=== PATIENT | female | born 1935 | race Caucasian/White ===

== ENCOUNTER 2016-11-20 16:47 | Inpatient (IN) | payer OTHER ==
--- NOTE | 2016-11-20 17:05 | EDPHY ---
H & P Time Seen by Provider: 11/20/16 16:53 HPI/ROS: HPI: This 81-year-old female who presents with Chief Complaint: Accidental fall Location: Right side of face, left hip Quality: Injury Duration: 30 minutes to 1 hour prior to arrival Signs and Symptoms: No dizziness, no syncope, no chest pain, no shortness of breath, no back pain, no neck pain, no nausea vomiting, no abdominal pain, no radiation, no weakness, no incontinence Timing: Sudden Severity: [id number] Context: Patient reports she was outside walking on the sidewalk; tripped on uneven pavement; falling forward; hitting the right side of her face and then rolling hitting the left side of her hip. She reports bilateral hip replacement. Denies taking any blood thinners. Denies any loss of consciousness. Neighbors found her outside. She was ambulatory at the scene. The neighbors helped her inside her house and EMS was called. Last tetanus unknown. Modifying Factors: Given IV Zofran en route by EMS Comment: ROS: Constitutional: No fever, no chills, no weight loss Eyes: No blurred vision Respiratory: No shortness of breath, no cough Cardiovascular: No chest pain Gastrointestinal: No nausea, no vomiting no diarrhea Genitourinary: No dysuria Extremities: No myalgias Neurologic: No weakness, no numbness Skin: No rashes Hematologic: No bruising, no bleeding MEDICAL/SURGICAL/SOCIAL HISTORY: Lives by self. bilateral hip replacements, type 2 diabetes, GERD and depression Source: Patient - Physical Exam Exam: CONSTITUTIONAL: The T elderly white female, awake and alert, no obvious distress HEENT: Right congregational sparing orbital region small superficial 1/8 cm laceration ; minimal bleeding. Atraumatic and normocephalic, PERRL, EOMI. Nares patent; no epistaxis; mild nasal ecchymosis. Tympanic membranes clear. TMs intact. Right maxillary ecchymosis noted; mild crepitus. Oropharynx clear, no exudate and moist pink mucosa. No dental cracks or loosening. Right side of chin ecchymosis noted. No lip laceration. Airway patent. NECK: Supple; in a cervical collar; denies posterior tenderness. No lymphadenopathy. No meningismus. Cardiovascular: Normal S1/S2, regular rate, regular rhythm, without murmur rub or gallop. PULMONARY/CHEST: Symmetrical and nontender. No crepitus. Clear to auscultation bilaterally Good air movement. No accessory muscle usage. ABDOMEN: Soft, nondistended, nontender, no rebound, no guarding, no peritoneal signs, no masses or organomegaly. No CVAT. No ecchymosis. EXTREMITIES: 2/2 pulses, no deformities, no clubbing, no cyanosis or edema. Left hip; remote incision noted from hip replacement; mild tenderness over the greater trochanter; leg lengths are equal; able to lift both legs off the bed against gravity. NEUROLOGICAL: no focal neuro deficits. GCS 15. drowsy but able to speak and follow simple one-step commands. SKIN: Warm and dry, pallor, no erythema. no rash. Good capillary refill. Constitutional: Initial Vital Signs Temperature (C) 36.3 C 11/20/16 16:53 Heart Rate 73 11/20/16 16:53 Respiratory Rate 18 11/20/16 16:53 Blood Pressure 118/78 11/20/16 16:53 O2 Sat (%) 92 11/20/16 16:53 O2 Delivery Mode Room Air Allergies/Adverse Reactions: Penicillins Allergy (Verified 11/20/16 17:04) Home Medications: Medication Instructions Recorded Metformin 1000 mg 11/20/16 Prednisone 11/20/16 Protonix 11/20/16 VENLAFAXINE HCL 11/20/16 Wellbutrin Xl 11/20/16 Medical Decision Making - Diagnostics Imaging Results: Imaging Impressions Cervical Spine CT 11/20/16 16:59 Impression: 1. No acute abnormality seen about the cervical spine. 2. Marked marked diffuse degenerative disk disease. Findings discussed with Siobhan Collazo PAC at 18:01 hour, 11/20/2016. Face CT 11/20/16 16:59 Impression: 1. Small amount of subarachnoid hemorrhage anterior right sylvian fissure and along the medial aspect left frontal lobe in a parasagittal location 2. No mass effect, or acute peripheral infarct. 3. Mild to moderate microvascular ischemic disease. 4. Mild to moderate age-related atrophy. 5. Fracture of the right nasal bone with mild depression. 6. Nondisplaced fracture posterior lateral right maxillary sinus with air-fluid level. [facility] at 18:01 hour, 11/20/2016. Head CT 11/20/16 16:59 Impression: 1. Small amount of subarachnoid hemorrhage anterior right sylvian fissure and along the medial aspect left frontal lobe in a parasagittal location 2. No mass effect, or acute peripheral infarct. 3. Mild to moderate microvascular ischemic disease. 4. Mild to moderate age-related atrophy. 5. Fracture of the right nasal bone with mild depression. 6. Nondisplaced fracture posterior lateral right maxillary sinus with air-fluid level. Findings discussed with Siobhan Collazo PAC at 18:01 hour, 11/20/2016. Hip X-Ray 11/20/16 16:59 Impression: Nothing acute identified. ED Course/Re-evaluation: trauma protocol CT head scan, CT maxillofacial scan, CT cervical scan, left hip x-ray, wound care ordered Fall mechanical in nature Denies anticoagulant use including aspirin. Small abrasion on the right congregational noted No loss of consciousness; neurovascularly intact. 1725: Right hip x-ray my read shows no hardware loosening; fracture; dislocation. 1805: called by radiologist and head CT scan shows subarachnoid hemorrhage in the right anterior Napoleon and left frontal parasagittal along with a right nasal bone fracture, right maxillary sinus fracture PCN allergy; Keflex given for sinus fracture SBP 110-120s No signs of neurovascular compromise 1815: ED decision to consult for admission, spoke with Neurosurgery, Dr. Erickson , hospitalist Dr. Abernathy and Trauma, Dr. Ahuja. Please note: Left hip x-ray pending upon consultation Differential Diagnosis: Fall in the elderly including but not limited to intracranial injury, long bone and pelvic bone fracture, spinal injury, and intrathoracic injury. Critical Care Time: I spent a total of 42 minutes of critical care time in obtaining history, performing a physical exam, bedside monitoring of interventions, collecting and interpreting tests and discussion with consultants but not including time spent performing procedures. Diagnosis: Subarachnoid hemorrhage - Data Points Medications Given: Discontinued Medications Diphtheria/Tetanus/Acell Pertussis (Boostrix) 0.5 ml IM .ONCE ONE Stop: 11/20/16 17:07 Last Admin: 11/20/16 17:45 Dose: 0.5 ml Departure - Departure Disposition: [facility] Acute Clinical Impression: Subarachnoid hemorrhage Accidental fall Qualifiers: Encounter type: initial encounter Qualified Code(s): W19.XXXA - Unspecified fall, initial encounter Nasal bone fracture Qualifiers: Encounter type: initial encounter Fracture type: closed Qualified Code(s): S02.2XXA - Fracture of nasal bones, initial encounter for closed fracture Fracture of maxillary sinus Qualifiers: Encounter type: initial encounter Fracture type: closed Qualified Code(s): S02.401A - Maxillary fracture, unspecified side, initial encounter for closed fracture Condition: Good
[2016-11-20] MEDS ORDERED: TDAP ADULT 0.5 ML INJ (BOOSTRIX) IM ONE (17:06)
[2016-11-20] MEDS ORDERED: CEPHALEXIN 500 MG CAP PO ONE (18:21)
[2016-11-20 18:38] LABS: % IMMATURE GRANULYOCYTES 0.4 % (0.0-1.1); ABSOLUTE IMMATURE GRANULOCYTES 0.03 10^3/uL (0.00-0.10); ADD DIFF? NO; ADD MORPH? NO; ADD SCAN? NO; ATYPICAL LYMPHOCYTE FLAG 10 (0-99); FRAGMENT RBC FLAG 0 (0-99); HEMATOCRIT 36.4 % (38.0-47.0); HEMOGLOBIN 12.6 g/dL (12.6-16.3); LEFT SHIFT FLG 0 (0-99); LIPEMIA HEMOLYSIS FLAG 90 (0-99); MEAN CELL HEMOGLOBIN 31.4 pg (27.9-34.1); MEAN CELL HEMOGLOBIN CONCENTR. 34.6 g/dL (32.4-36.7); MEAN CELL VOLUME 90.8 fL (81.5-99.8); PLATELET CLUMPS FLAG 10 (0-99); PLATELET COUNT 242 10^3/uL (150-400); RED BLOOD CELL COUNT 4.01 10^6/uL (4.18-5.33); RED CELL DISTRIBUTION WIDTH 13.8 % (11.5-15.2)
[2016-11-20 18:39] LABS: ANION GAP 15 mEq/L (8-16); CALCIUM 9.7 mg/dL (8.5-10.4); CARBON DIOXIDE 20 mEq/l (22-31); CHLORIDE 97 mEq/L (97-110); CREATININE 0.9 mg/dL (0.6-1.0); GLOMERULAR FILTRATION RATE > 60; GLUCOSE 120 mg/dL (70-100); POTASSIUM 4.5 mEq/L (3.5-5.2); SODIUM 132 mEq/L (134-144)
[2016-11-20] MEDS ORDERED: D50W 25 GM/50 ML SYR IVP PRN (19:16)
[2016-11-20] MEDS ORDERED: hydrALAZINE 20 MG/ML VIAL IVP PRN (19:21)
--- NOTE | 2016-11-20 19:25 | PDGENHP ---
History and Physical - Chief Complaint fall - History of Present Illness 81yo female who presented to the ED via EMS after sustaining mechanical fall. Per the patient, she is a resident at an unassisted living facility and she was walking on her cement patio. The details are foggy, but she thinks she tripped and fell on her right side. She does endorse LOC and c/o right sided facial pain. In the emergency department, she is AOx3, and nonfocal on exam. She c/o R sided facial and eye pain 7/10 in intensity which she states is throbbing. She also endorses right hip, shoulder and elbow pain. She is protecting her airway, has good breath sounds and has adequate circulation in all major distributions. he main complaints are pain and the fact that she requires hospital admission History Information - Allergies/Home Medication List Allergies/Adverse Reactions: Penicillins Allergy (Verified 11/20/16 17:04) Home Medications: ALPRAZolam [Xanax 0.5 MG (*)] 1.5 mg PO HS 11/20/16 [Last Taken 11/19/16] Atenolol [Tenormin 50 mg (*)] 50 mg PO DAILY 11/20/16 [Last Taken 11/20/16] Ranitidine HCl [Zantac] 300 mg PO DAILY@18 11/20/16 [Last Taken 11/19/16] Venlafaxine Xr [Effexor Xr 75MG (*)] 225 mg PO DAILY@18 11/20/16 [Last Taken 09/28] buPROPion XL [Wellbutrin Xl] 300 mg PO DAILY 11/20/16 [Last Taken 11/20/16] metFORMIN HCL [Glucophage 500 mg (*)] 500 mg PO DAILY 11/20/16 [Last Taken 11/20] I have personally reviewed and updated: medical history, social history, surgical history Past Medical History: anxiety, depression, diabetes. - Surgical History Additional surgical history: bilateral hip replacements, open dennis - Family History Positive for: non-pertinent - Social History Smoking Status: Never smoked Alcohol Use: None Additional social history: lives at [facility] independently Review of Systems Review of Systems: ROS: 10pt was reviewed & negative except for what was stated in HPI & below Physical Exam Physical Exam: Temp Pulse Resp BP Pulse Ox 36.9 C 85 18 117/86 H 95 09/08/17 18:00 11/20/16 18:00 11/20/16 18:00 11/20/16 18:00 11/20/16 18:00 Constitutional: no apparent distress, uncomfortable, other (dizzy) Eyes: PERRL, anicteric sclera, EOMI Ears, Nose, Mouth, Throat: moist mucous membranes, hearing normal, ears appear normal, no oral mucosal ulcers Cardiovascular: regular rate and rhythym, no murmur, rub, or gallop, No edema Respiratory: no respiratory distress, no rales or rhonchi, clear to auscultation Gastrointestinal: normoactive bowel sounds, soft, non-tender abdomen, no palpable masses Skin: warm, normal color, no rashes or abrasions, no fluctuance, no induration, No mottled Musculoskeletal: full muscle strength, no muscle tenderness, normal joint ROM, no joint effusions Neurologic: AAOx3, CN II-XII Intact, No weakness, No numbness, No asterixes Psychiatric: interacting appropriately, not anxious, not encephalopathic, thought process linear Lymph, Heme, Immunologic: no cervical LAD, no supraclavicular LAD Lab Data & Imaging Review 11/20/16 17:00 11/20/16 17:00 WBC 7.03 10^3/uL (3.80-9.50) 11/20/16 17:00 RBC 4.01 10^6/uL (4.18-5.33) L 11/20/16 17:00 Hgb 12.6 g/dL (12.6-16.3) 11/20/16 17:00 Hct 36.4 % (38.0-47.0) L 11/20/16 17:00 MCV 90.8 fL (81.5-99.8) 11/20/16 17:00 MCH 31.4 pg (27.9-34.1) 11/20/16 17:00 MCHC 34.6 g/dL (32.4-36.7) 11/20/16 17:00 RDW 13.8 % (11.5-15.2) 11/20/16 17:00 Plt Count 242 10^3/uL (150-400) 11/20/16 17:00 MPV 9.0 fL (8.7-11.7) 11/20/16 17:00 Neut % (Auto) 74.0 % (39.3-74.2) 11/20/16 17:00 Lymph % (Auto) 16.1 % (15.0-45.0) 11/20/16 17:00 Kenton % (Auto) 3.4 % (4.5-13.0) L 11/20/16 17:00 Eos % (Auto) 5.4 % (0.6-7.6) 11/20/16 17:00 Baso % (Auto) 0.7 % (0.3-1.7) 11/20/16 17:00 Nucleat RBC Rel Count 0.0 % (0.0-0.2) 11/20/16 17:00 Absolute Neuts (auto) 5.20 10^3/uL (1.70-6.50) 11/20/16 17:00 Absolute Lymphs (auto) 1.13 10^3/uL (1.00-3.00) 11/20/16 17:00 Absolute Monos (auto) 0.24 10^3/uL (0.30-0.80) L 11/20/16 17:00 Absolute Eos (auto) 0.38 10^3/uL (0.03-0.40) 11/20/16 17:00 Absolute Basos (auto) 0.05 10^3/uL (0.02-0.10) 11/20/16 17:00 Absolute Nucleated RBC 0.00 10^3/uL (0-0.01) 11/20/16 17:00 Immature Gran % 0.4 % (0.0-1.1) 11/20/16 17:00 Immature Gran # 0.03 10^3/uL (0.00-0.10) 11/20/16 17:00 Sodium 132 mEq/L (134-144) L 11/20/16 17:00 Potassium 4.5 mEq/L (3.5-5.2) 11/20/16 17:00 Chloride 97 mEq/L (97-110) 11/20/16 17:00 Carbon Dioxide 20 mEq/l (22-31) L 11/20/16 17:00 Anion Gap 15 mEq/L (8-16) 11/20/16 17:00 BUN 13 mg/dL (7-23) 11/20/16 17:00 Creatinine 0.9 mg/dL (0.6-1.0) 11/20/16 17:00 Estimated GFR > 60 11/20/16 17:00 Glucose 120 mg/dL (70-100) H 11/20/16 17:00 Calcium 9.7 mg/dL (8.5-10.4) 11/20/16 17:00 Visualized and Interpreted Chest x-ray results: Yes Visualized and Interpreted imaging results: Yes Interpretation: CT Head/face: small SAH around the anterior R sylvian fissure and L frontal lobe. R nasal bone fx, R maxillary sinus fx. CT C-spine: neg. R hip xray: negative for acute fracture Assessment & Plan Assessment: Accidental fall (Acute) Fracture of maxillary sinus (Acute) Nasal bone fracture (Acute) Subarachnoid hemorrhage (Acute) Plan: 81yo F s/p mech fall, not anticoagulated c small anterior R frontal SAH, L frontal SAH, R nasl and maxillary sinus fx - On examination, patient is neuro intact and nonfocal. She is somewhat dizzy with activity but has concerning signs on exam. She will be admitted to the ICU for observation, Thomas Erickson and Josemanuel to evaluate the patient. Will order ketexra for Sz prophylaxis and provide adequate pain control. Patients son in [place] has been notified, patient is also KP and will notify them of her hospitalization. Will discuss with NSG Re timing and need of repeat head scan based on initial exam.
[2016-11-20] MEDS ORDERED: NS 1,000 ML IV SCH (19:30)
[2016-11-20] MEDS: ONDANSETRON 4 MG/2 ML VIAL IVP PRN ×2 (19:43→23:43)
[2016-11-20 19:49] LABS: INR 0.97 (0.83-1.16); PROTIME(PATIENT) 12.8 SEC (12.0-15.0)
--- NOTE | 2016-11-20 19:58 | GHP ---
[f rep st] HISTORY AND PHYSICAL DATE OF ADMISSION: 11/20/2016 CHIEF COMPLAINT: Fall. HISTORY OF PRESENT ILLNESS: This is an 81-year-old female, who was walking on her patio and she fell . She describes that the blocks on her patio are uneven, and she tripped over one of those. She is unsure if she lost consciousness after the fall. She did not have an episode of syncope prior to the fall. No other preceding symptoms, like chest pain or palpitations. She fell on her right side. S emma then, she has felt quite woozy. She also had some pain in her hip. She is not on any blood thi nners or aspirin. PAST MEDICAL/SURGICAL HISTORY: 1. Diabetes, on metformin. 2. Depression. 3. GERD. 4. Bilateral AUTUMN. 5. Cholecystectomy. MEDICATIONS: Please see medication reconciliation. ALLERGIES: Penicillin. SOCIAL HISTORY: She recently relocated here from [place]. She is quite upset about that, as srikanth dudley had a beautiful house full of antiques in [place]. Her son lives in [place]. FAMILY HISTORY: Parents are . REVIEW OF SYSTEMS: Ten-point review of systems is conducted and is negative except per HPI. PHYSICAL EXAMINATION: VITAL SIGNS: Blood pressure 117/86, heart rate 85, respiration rate 18, satti ng 95% on room air, temperature 36.9. GENERAL: The patient is a very pleasant female, who appears s lightly tired, with significant facial trauma. HEENT: Shows her to have multiple abrasions on her f zainab. CARDIOVASCULAR: Regular rate and rhythm. No murmurs, rubs, or gallops. PULMONARY: Lungs abebe ar to auscultation bilaterally. ABDOMEN: Soft, nontender, nondistended. SKIN: Shows no rash. : Shows no Mixon. NEUROLOGIC: Shows her to be alert and oriented x3. She is speaking somewhat slow ly. Strength is symmetric in her upper extremities, slightly weak with triceps flexion but symmetric . Sensation is intact in her upper and lower extremities. Her left leg lift is weak; however, she i s grimacing during this. PSYCHIATRIC: Shows her to appear mildly distressed. LABS: Hemoglobin is 12. Sodium is 132. Bicarb is 20. DATA: 1. I discussed this with PA in the emergency department. We will admit to step-down unit. 2. Left hip x-ray is negative. 3. Right hip x-ray shows nothing acute. 4. Noncontrast head CT scan shows small subarachnoid hemorrhage. She also has a fracture of the rig ht nasal bone and a nondisplaced fracture of the posterolateral right maxillary sinus with an air-flu id level. 5. C-spine CT shows degenerative disk disease but nothing acute. IMPRESSION AND PLAN: 81-year-old female with a mechanical fall, multiple injuries. 1. Mechanical fall: I do not think we need to do any further workup for syncope with this. She jesse cribes pretty well tripping over something and falling. Unfortunately, she does have pretty severe i njuries. 2. Subarachnoid hemorrhage: Neurosurgery has been consulted. She is somewhat somnolent on exam. S he is not on any blood thinners. I will check an INR. We will triage her to the step-down unit and check q.2 neuro checks. We will make sure that her blood pressure stays low, 140. We will order her hydralazine as needed for elevated systolics. 3. Nasal fracture and maxillary sinus fracture: Given her air-fluid level, I think Staphylococcus p rophylaxis is appropriate. She is allergic to penicillins; however, she got a dose of Keflex, which she tolerated. I have just written her for doxycycline for now. 4. Diabetes mellitus: She is on metformin. I will hold this and follow her glucoses for now. She may need sliding scale insulin added. 5. Depression: Continue her home medications. 6. Code status: She would like to be Do Not Resuscitate. She was quite clear on what this means. /[id number]/MODL
[2016-11-20] MEDS: DOXYCYCLINE HYCLATE 100 MG CAP/TAB PO SCH ×2 (22:28→22:30)
[2016-11-20] MEDS: guaiFENesin 600 MG TAB.ER PO SCH (23:44)
--- NOTE | 2016-11-21 00:34 | GCON ---
[f rep st] CONSULTATION NEUROSURGERY CONSULTATION NOTE DATE OF CONSULTATION: 11/20/2016 Patient was seen and evaluated in the ICU at [facility] at approximately 11 p.m. on 0 11/20/2016. HISTORY OF PRESENT ILLNESS: The patient is an 81-year-old woman, who was walking on her patio today when she fell. She thinks that she tripped on one of the uneven blocks on the patio. She is not ent irely clear if she had a loss of consciousness or not, but she was somewhat confused after the fall. She presented to the [facility] emergency department where she was found to have kodak e nasal fractures, some ecchymoses over the face and the right side of her body, and a tiny parafalci ne traumatic subarachnoid hemorrhage. She did seem to be a bit postconcussive with some confusion bu t otherwise was neurologically intact. She was admitted to the ICU to the hospitalists service for f urther management and observation. REVIEW OF SYSTEMS: A 10-point review of systems is negative other than described above in HPI. PAST MEDICAL HISTORY: 1. Diabetes. 2. Depression. 3. Gastroesophageal reflux. 4. Bilateral total hip arthroplasty. 5. Cholecystectomy. ALLERGIES: Penicillin. MEDICATIONS: Her medications were reviewed within the electronic medical record. I have no addition s at this time. SOCIAL HISTORY: Patient recently moved here from [place]. Her son lives nearby in [place], but s he says he is currently out of town in [facility] [place], so she does not have anyone to live with her that will be with her at home. She denies tobacco, alcohol, or other drug use. FAMILY HISTORY: Negative for brain bleeds. PHYSICAL EXAMINATION: VITAL SIGNS: Currently, she is afebrile with normal stable vital signs. NEUR OLOGIC: She is awake, alert, and oriented x2. She is somewhat confused about her current situation. Her pupils are equal, round, and reactive to light. Her extraocular movements are intact. Her fac e is symmetric, and tongue is midline. She does have some ecchymoses over the face, especially on th e right side. She has full 5/5 strength at the deltoids, biceps, triceps, wrist flexion and extensio n, and nurse licensed practical bilaterally. She also has 5/5 strength of the hip flexors and extensors, knee flexors an d extensors, and plantar and dorsiflexion bilaterally. Her sensation is intact and deep tendon refle xes are normal. IMAGING DATA: CT of the head reveals a tiny 1 mm parafalcine subarachnoid hemorrhage near the left f rontal lobe. She has atrophy consistent with her age. There is no mass effect or any midline shift. I did not notice any skull fractures. LABORATORY DATA: The hemoglobin was 12. Sodium was 132. The white count is 7.0. Platelet count is 242,000. INR is 0.9. PT is 12.8, potassium 4.5, BUN 13, creatinine 0.9, glucose is 120. ASSESSMENT AND PLAN: The patient is an 81-year-old lady who had a fall from standing earlier today. She has a very tiny traumatic subarachnoid hemorrhage in the left frontal region. This is not causi ng any mass effect or midline shift and does not require any intervention. Would recommend a repeat CT of the head tomorrow morning just to be sure that she has not blossomed any contusions, and if thi s is stable, then she could probably be discharged from a neurosurgical standpoint if it is safe base d on a PT evaluation. I do not think there is any contraindication for any anticoagulants if she francy uld require these. I do not expect that she will need any significant neurosurgical followup after t his admission. We will follow along while she is in the hospital. Please feel free to call us with any questions or concerns or any changes in her neurologic exam. Thanks for the kind consultation. /[id number]/MODL
[2016-11-21] MEDS: ONDANSETRON 4 MG/2 ML VIAL IVP PRN ×3 (03:41→17:45)
[2016-11-21] MEDS: guaiFENesin 600 MG TAB.ER PO SCH ×3 (04:49→21:07)
[2016-11-21 06:05] LABS: % IMMATURE GRANULYOCYTES 0.4 % (0.0-1.1); ABSOLUTE IMMATURE GRANULOCYTES 0.03 10^3/uL (0.00-0.10); ADD DIFF? NO; ADD MORPH? NO; ADD SCAN? NO; ATYPICAL LYMPHOCYTE FLAG 10 (0-99); FRAGMENT RBC FLAG 0 (0-99); HEMATOCRIT 30.1 % (38.0-47.0); HEMOGLOBIN 10.3 g/dL (12.6-16.3); LEFT SHIFT FLG 0 (0-99); LIPEMIA HEMOLYSIS FLAG 90 (0-99); MEAN CELL HEMOGLOBIN 30.9 pg (27.9-34.1); MEAN CELL HEMOGLOBIN CONCENTR. 34.2 g/dL (32.4-36.7); MEAN CELL VOLUME 90.4 fL (81.5-99.8); MEAN PLATELET VOLUME 8.7 fL (8.7-11.7); PLATELET CLUMPS FLAG 0 (0-99); PLATELET COUNT 175 10^3/uL (150-400); RED BLOOD CELL COUNT 3.33 10^6/uL (4.18-5.33); RED CELL DISTRIBUTION WIDTH 13.6 % (11.5-15.2)
--- NOTE | 2016-11-21 06:31 | SOAPPROG ---
SOAP Progress Note Assessment/Plan: Assessment: 81F s/p fall with tiny tSAH Plan: -repeat CT this am -if CT stable, then OK for d/c from neurosurgery perspective -no need for neurosurgical followup -OK for dvt ppx anticoagulation if indicated per primary service -please call with any questions or concerns 11/21/16 06:29 Subjective: mild headache Objective: Vital Signs Temp Pulse Resp BP Pulse Ox 36.7 C 79 19 101/64 96 11/21/16 04:00 11/21/16 06:00 11/21/16 06:00 11/21/16 06:00 11/21/16 06:00 Laboratory Results 11/21/16 05:50 11/20/16 11/21/16 11/22/16 05:59 05:59 05:59 Intake Total 695 Balance 695 PT 12.8 SEC (12.0-15.0) 11/20/16 17:00 INR 0.97 (0.83-1.16) 11/20/16 17:00 AAOx3, full strength/sensation, no drift - Pending Discharge Pending Discharge Within 24 Hours: No Pending Discharge Within 48 Hours: Yes Pending Discharge Date: 11/23/16 Pending Discharge Time: 11:00 ICD10 Worksheet Patient Problems: Problems Problem Status Onset Accidental fall Acute Fracture of maxillary sinus Acute Nasal bone fracture Acute Subarachnoid hemorrhage Acute
[2016-11-21 06:44] LABS: ANION GAP 10 mEq/L (8-16); CALCIUM 8.3 mg/dL (8.5-10.4); CARBON DIOXIDE 20 mEq/l (22-31); CHLORIDE 102 mEq/L (97-110); CREATININE 0.7 mg/dL (0.6-1.0); GLOMERULAR FILTRATION RATE > 60; GLUCOSE 93 mg/dL (70-100); POTASSIUM 3.8 mEq/L (3.5-5.2); SODIUM 132 mEq/L (134-144)
--- NOTE | 2016-11-21 09:14 | TRAUMAPN ---
Assessment/Plan: 81-year-old woman status post fall witnessed by neighbor on to the right side of her face. The patient denies loss of consciousness she was found to have a small subarachnoid hemorrhage on CT scan. Consultation with Neurosurgery suggested non operative care. If CT scan is negative the patient should be able to be discharged without any additional measures. History significant for diabetes. Patient this morning has complaints of nausea but otherwise is doing well Alert oriented to person place and time. Pupils 4 mm equally reactive round Bruising on the right side of her face periorbital and perioral. No JVD trachea midline Lungs clear bilaterally Heart regular rate and rhythm Abdomen soft nontender Extremities essential tremor but full muscle strength. Good range of motion. Distally neurovascularly intact Neurologic nonfocal Mild dilutional anemia chronic Await CT scan of the head which was ordered by Dr. Erickson this morning. Would recommend advancing diet and placed on regular floor with Q 4 hour neuro checks for 1 more day. When her nausea abates and she is able to tolerate diet discharge home would be appropriate. Objective: Vital Signs Temp Pulse Resp BP Pulse Ox 36.7 C 79 19 101/64 96 11/21/16 04:00 11/21/16 06:00 11/21/16 06:00 11/21/16 06:00 11/21/16 06:00 Laboratory Results 11/21/16 05:50 11/21/16 05:50 11/20/16 11/21/16 11/22/16 05:59 05:59 05:59 Intake Total 695 Balance 695 PT 12.8 SEC (12.0-15.0) 11/20/16 17:00 INR 0.97 (0.83-1.16) 11/20/16 17:00
[2016-11-21] MEDS: DOXYCYCLINE HYCLATE 100 MG CAP/TAB PO SCH ×2 (09:55→21:09)
[2016-11-21] MEDS: ATENOLOL 50 MG TAB PO SCH (09:55)
[2016-11-21] MEDS: buPROPion XL 150 MG TAB PO SCH (09:55)
--- NOTE | 2016-11-21 14:16 | HOSPPROG ---
Hospitalist Progress Note Assessment/Plan: 81 yo f w mech fall, small SAH SAH: non focal exam without signs of elevated ICP neurosurgery feel she could be dc'd they are aware of second CT result non focal exam falls: repeat PT eval maxillary sinus fracture: no nose blowing and abx proph: hold lmwh dispo: pending pt eval Subjective: case d/w dr gómez. tele: no bradycardia (interp by me) Objective: Vital Signs Temp Pulse Resp BP Pulse Ox 37.0 C 88 14 118/59 L 95 11/21/16 12:00 11/21/16 12:00 11/21/16 12:00 11/21/16 12:00 11/21/16 12:00 Laboratory Results 11/21/16 05:50 11/21/16 05:50 11/20/16 11/21/16 11/22/16 05:59 05:59 05:59 Intake Total 695 Balance 695 PT 12.8 SEC (12.0-15.0) 11/20/16 17:00 INR 0.97 (0.83-1.16) 11/20/16 17:00 - Physical Exam Constitutional: no apparent distress, appears nourished Eyes: PERRL, anicteric sclera Ears, Nose, Mouth, Throat: moist mucous membranes, hearing normal Cardiovascular: regular rate and rhythym, no murmur, rub, or gallop Respiratory: no respiratory distress, no rales or rhonchi Gastrointestinal: normoactive bowel sounds, soft, non-tender abdomen, no palpable masses Genitourinary: no bladder fullness, No owusu in urethra Skin: warm, normal color Musculoskeletal: full muscle strength Neurologic: AAOx3 ICD10 Worksheet Patient Problems: Problems Problem Status Onset Accidental fall Acute Fracture of maxillary sinus Acute Nasal bone fracture Acute Subarachnoid hemorrhage Acute
[2016-11-21] MEDS: CEPHALEXIN 500 MG CAP PO SCH ×3 (17:38→23:33)
[2016-11-21] MEDS: VENLAFAXINE XR 75 MG CAP PO SCH (17:45)
[2016-11-21] MEDS: FAMOTIDINE 20 MG TAB PO SCH (17:45)
[2016-11-21] MEDS: ACETAMINOPHEN 325 MG TAB PO PRN (21:07)
[2016-11-22] MEDS: ONDANSETRON 4 MG/2 ML VIAL IVP PRN (04:11)
[2016-11-22] MEDS: CEPHALEXIN 500 MG CAP PO SCH ×3 (06:24→17:54)
--- NOTE | 2016-11-22 07:15 | SOAPPROG ---
CARMEN Progress Note Assessment/Plan: Assessment: 81F s/p fall with tiny tSAH Plan: -repeat CT yesterday showed ? blossoming of right temporal tSAH but overall insignificant change -OK for discharge or tx to floor -no need for scheduled neurosurgical followup (can follow with PCP), but would be happy to see her back if needed -OK for dvt ppx anticoagulation if indicated per primary service -please call with any questions or concerns 11/21/16 06:29 11/22/16 07:13 Subjective: no complaints Objective: Vital Signs Temp Pulse Resp BP Pulse Ox 37.2 C 76 21 H 134/74 H 97 11/22/16 00:00 11/22/16 04:00 11/22/16 04:00 11/22/16 04:00 11/22/16 04:00 Laboratory Results 11/21/16 05:50 11/21/16 05:50 11/21/16 11/22/16 11/23/16 05:59 05:59 05:59 Intake Total 695 720 Output Total 500 Balance 695 220 PT 12.8 SEC (12.0-15.0) 11/20/16 17:00 INR 0.97 (0.83-1.16) 11/20/16 17:00 AAOx3, full strength and sensation, no drift - Pending Discharge Pending Discharge Within 24 Hours: Yes Pending Discharge Date: 11/23/16 Pending Discharge Time: 11:00 ICD10 Worksheet Patient Problems: Problems Problem Status Onset Accidental fall Acute Fracture of maxillary sinus Acute Nasal bone fracture Acute Subarachnoid hemorrhage Acute
--- NOTE | 2016-11-22 08:45 | SOAPPROG ---
SOAP Progress Note Assessment/Plan: Assessment: vs stable/ afebrile/ major complaint is nausea but no emesis or headache/ head ct stable with temporal lobe small bleed also co intermittent diplopia chest clear cor rr abd soft, nontender extr no new findings Plan:pt eval/ fu with ent 11/22/16 08:42 Objective: Vital Signs Temp Pulse Resp BP Pulse Ox 37.2 C 78 21 H 132/86 H 96 11/22/16 00:00 11/22/16 08:00 11/22/16 08:00 11/22/16 08:00 11/22/16 08:00 Laboratory Results 11/21/16 05:50 11/21/16 05:50 11/21/16 11/22/16 11/23/16 05:59 05:59 05:59 Intake Total 695 720 Output Total 500 Balance 695 220 PT 12.8 SEC (12.0-15.0) 11/20/16 17:00 INR 0.97 (0.83-1.16) 11/20/16 17:00 ICD10 Worksheet Patient Problems: Problems Problem Status Onset Accidental fall Acute Fracture of maxillary sinus Acute Nasal bone fracture Acute Subarachnoid hemorrhage Acute
--- NOTE | 2016-11-22 08:49 | PDINTPN ---
Reconciliation Analyst Progress Note Assessment/Plan: Assessment/plan: 81 F living independently s/p mechanical fall with small SAH, orbital fracture and nasal fracture, but no surgical intervention required. Repeat head CT on HD# 2 showed new area of hemorrhage but overall stable. * SAH remains stable and OK for dc per neurosurgery * Fractures stable- pain controlled * mechanical fall- PT/OT to see today and assess for home safety. May need rehab Subjective: feels well- less N/V and tolerating PO. Complains of intermittent double vision Objective: Vital Signs Temp Pulse Resp BP Pulse Ox 37.2 C 78 21 H 132/86 H 96 11/22/16 00:00 11/22/16 08:00 11/22/16 08:00 11/22/16 08:00 11/22/16 08:00 Laboratory Results 11/21/16 05:50 11/21/16 05:50 11/21/16 11/22/16 11/23/16 05:59 05:59 05:59 Intake Total 695 720 Output Total 500 Balance 695 220 PT 12.8 SEC (12.0-15.0) 11/20/16 17:00 INR 0.97 (0.83-1.16) 11/20/16 17:00 Physical Exam - Physical Exam General Appearance: WD/WN, alert, no apparent distress EENT: PERRL/EOMI, other (ecchymosis around right eye) Neck: supple Respiratory: lungs clear, normal breath sounds, No respiratory distress Cardiac/Chest: regular rate, rhythm, No edema Abdomen: non-tender, soft, No distended Skin: normal color, warm/dry Lymphatic: no adenopathy Extremities: No pedal edema Neuro/Psych: alert, normal mood/affect, oriented x 3 ICD10 Worksheet Patient Problems: Problems Problem Status Onset Accidental fall Acute Fracture of maxillary sinus Acute Nasal bone fracture Acute Subarachnoid hemorrhage Acute
[2016-11-22] MEDS: ATENOLOL 50 MG TAB PO SCH (09:23)
[2016-11-22] MEDS: buPROPion XL 150 MG TAB PO SCH (09:24)
[2016-11-22] MEDS: guaiFENesin 600 MG TAB.ER PO SCH ×2 (09:24→20:40)
[2016-11-22] MEDS: DOXYCYCLINE HYCLATE 100 MG CAP/TAB PO SCH (09:24)
--- NOTE | 2016-11-22 11:28 | HOSPPROG ---
Hospitalist Progress Note Assessment/Plan: 81 yo f w mech fall, small SAH SAH: non focal exam without signs of elevated ICP neurosurgery feel she could be dc'd they are aware of second CT result non focal exam repeat ct uncganged none further unless sx falls: inpt rehab consult placed she is reluctant but amenable she does have early maxillary sinus fracture: no nose blowing and abx proph: start lmwh AM 11/23 dispo: will need rehab Subjective: case d/w dr hamilton. tele: no events (interp by me) Objective: Vital Signs Temp Pulse Resp BP Pulse Ox 37.2 C 85 21 H 132/86 H 96 11/22/16 00:00 11/22/16 09:23 11/22/16 08:00 11/22/16 09:23 11/22/16 08:00 Laboratory Results 11/21/16 05:50 11/21/16 05:50 11/21/16 11/22/16 11/23/16 05:59 05:59 05:59 Intake Total 695 720 Output Total 500 Balance 695 220 PT 12.8 SEC (12.0-15.0) 11/20/16 17:00 INR 0.97 (0.83-1.16) 11/20/16 17:00 - Physical Exam Constitutional: no apparent distress, appears nourished Eyes: PERRL, other (facial bruising) Ears, Nose, Mouth, Throat: moist mucous membranes, hearing normal Cardiovascular: regular rate and rhythym, no murmur, rub, or gallop Respiratory: no respiratory distress, no rales or rhonchi Gastrointestinal: normoactive bowel sounds, soft, non-tender abdomen Genitourinary: no bladder fullness, No owusu in urethra Skin: warm, normal color Musculoskeletal: full muscle strength, no muscle tenderness Neurologic: AAOx3 ICD10 Worksheet Patient Problems: Problems Problem Status Onset Accidental fall Acute Fracture of maxillary sinus Acute Nasal bone fracture Acute Subarachnoid hemorrhage Acute
[2016-11-22] MEDS: ONDANSETRON DISINTEGRATING 4 MG TAB PO PRN (14:35)
[2016-11-22] MEDS: ACETAMINOPHEN 325 MG TAB PO PRN (14:45)
[2016-11-22 15:49] VITALS: RESP 16
--- NOTE | 2016-11-22 17:08 | ASMTCMCOM ---
CM Note CM Note Notes: 81 year old female recently moved to [place] from [place] to be closer to her son, Primo. Admitted for a fall: SDH and nasal fxs. Therapies to eval for discharge needs. Case Management to follow. Date Signed: 11/22/2016 09:34 AM Electronically Signed By:Marleny Kamara
--- NOTE | 2016-11-22 17:08 | ASMTCMCOM ---
CM Note CM Note Notes: Patient admitted after having a witnessed mechanical fall on her patio. She has recently moved from [place] from [place]. Son is local. She has a small subarachnoid hemorrhage and some facial fractures. Per surgery and neurosurgery, if CT scan is negative patient can be managed non-operatively. OT recommending inpatient rehab, PT eval pending. Rehab consult pending, as well. Surgery note seems to suggest discharge home. At this point, discharge TBD and CM will follow for discharge planning. Date Signed: 11/21/2016 02:29 PM Electronically Signed By:Leandra Mallory
--- NOTE | 2016-11-22 17:09 | ASMTCMCOM ---
CM Note CM Note Notes: Therapies are recomending Acute Rehab and patient is willing to go. Need to wait for Wednesday for In-pt to eval and get auth. Patient has Medicare insurance. Date Signed: 11/22/2016 03:28 PM Electronically Signed By:Marleny Kamara
[2016-11-22] MEDS: FAMOTIDINE 20 MG TAB PO SCH (17:54)
[2016-11-22] MEDS: VENLAFAXINE XR 75 MG CAP PO SCH (17:54)
--- NOTE | 2016-11-22 21:14 | SOAPPROG ---
SOAP Progress Note Assessment/Plan: Assessment: vs stable/ afebrile/ major complaint is nausea but no emesis or headache/ head ct stable with temporal lobe small bleed also co intermittent diplopia chest clear cor rr abd soft, nontender extr no new findings Plan:pt eval/ fu with ent 11/22/16 08:42 11/22/16 21:[address] MCKEON AND DR. MARIN THERE IS NO FURTHER NEED FOR TRAUMA FOLLOWUP. HER MAJOR ISSUES OR MEDICAL EVALUATION AND PLACEMENT. TRAUMA SERVICE WILL SIGN OFF FOR NOW BUT FEEL FREE TO CALL US IF THERE ARE NEW ISSUES. SHE WILL NEED AND NEUROSURGERY FOLLOW-UP AND ENT FOLLOW-UP Objective: Vital Signs Temp Pulse Resp BP Pulse Ox 36.7 C 76 16 145/94 H 94 11/22/16 19:36 11/22/16 19:36 11/22/16 19:36 11/22/16 19:36 11/22/16 19:36 Laboratory Results 11/21/16 05:50 11/21/16 05:50 11/21/16 11/22/16 11/23/16 05:59 05:59 05:59 Intake Total 695 720 300 Output Total 500 Balance 695 220 300 PT 12.8 SEC (12.0-15.0) 11/20/16 17:00 INR 0.97 (0.83-1.16) 11/20/16 17:00 ICD10 Worksheet Patient Problems: Problems Problem Status Onset Accidental fall Acute Fracture of maxillary sinus Acute Nasal bone fracture Acute Subarachnoid hemorrhage Acute
[2016-11-23] MEDS: CEPHALEXIN 500 MG CAP PO SCH ×4 (00:40→19:06)
[2016-11-23] MEDS: ATENOLOL 50 MG TAB PO SCH (08:55)
[2016-11-23] MEDS: buPROPion XL 150 MG TAB PO SCH (08:56)
[2016-11-23] MEDS: guaiFENesin 600 MG TAB.ER PO SCH ×2 (08:56→20:24)
--- NOTE | 2016-11-23 11:23 | HOSPPROG ---
Hospitalist Progress Note Assessment/Plan: 81 [facility]. today is my 1st encounter with the patient. Chart reviewed. SAH: non focal exam without signs of elevated ICP neurosurgery feel she could be dc'd non focal exam repeat ct unchanged none further unless sx having some double vision since this occurred/trial of covering one eye Dizziness: ongoing for several days/suspect it is from double vision cont monitoring mechanical falls: inpt rehab consult placed she is reluctant but amenable she does have early nasal fracture and maxillary sinus fracture: no nose blowing and abx ( Keflex) needs f/u with ENT proph: start lmwh AM 11/23 Plan: to be further evaluated for IP rehab Subjective: Monique is feeling dizzy when getting oob. Has intermittent double vision and some intermittent headaches. Objective: Vital Signs Temp Pulse Resp BP Pulse Ox 36.9 C 76 16 116/61 95 11/23/16 08:00 11/23/16 08:55 11/23/16 08:00 11/23/16 08:55 11/23/16 08:00 Laboratory Results 11/21/16 05:50 11/21/16 05:50 11/22/16 11/23/16 11/24/16 05:59 05:59 05:59 Intake Total 720 300 Output Total 500 400 Balance 220 -100 PT 12.8 SEC (12.0-15.0) 11/20/16 17:00 INR 0.97 (0.83-1.16) 11/20/16 17:00 - Physical Exam Constitutional: not in pain, uncomfortable Eyes: PERRL, EOMI, other (no nystagumus) Ears, Nose, Mouth, Throat: hearing normal Cardiovascular: regular rate and rhythym Respiratory: no respiratory distress Gastrointestinal: normoactive bowel sounds Skin: other (bruising along right jawline/ right periorbital area) Musculoskeletal: generalized weakness Neurologic: AAOx3 Psychiatric: interacting appropriately ICD10 Worksheet Patient Problems: Problems Problem Status Onset Accidental fall Acute Fracture of maxillary sinus Acute Nasal bone fracture Acute Subarachnoid hemorrhage Acute
--- NOTE | 2016-11-23 11:26 | ASMTCMCOM ---
WALESKA Note WALESKA Note Notes: Received a call from Monique at [facility] Inpt. Rehab. Monique to contact [facility] today and send for auth. Monique will follow-up with Case Managment later today. WALESKA w/f. Date Signed: 11/23/2016 11:25 AM Electronically Signed By:Amna Phipps
[2016-11-23] MEDS ORDERED: ENOXAPARIN 30 MG/0.3 ML SYR SC SCH (11:45)
[2016-11-23] MEDS: ACETAMINOPHEN 325 MG TAB PO PRN ×2 (11:49→20:26)
[2016-11-23] MEDS: ONDANSETRON DISINTEGRATING 4 MG TAB PO PRN (11:56)
--- NOTE | 2016-11-23 16:06 | ASMTCMCOM ---
CM Note CM Note Notes: Received a call from Monique at [facility] Inpt. Rehab, [place] has denied IPR, recommending SNF. Met with patient and spoke to patient's son, Primo, via phone regaring discharge poc. Patient's son is in [place] until . Informed patient that IPR is not a possibility and that SNF is being recommended, patient agreeable, although, hesitant. Son in complete agreement with SNF placement and does not feel comfortable with patient discharging home until he returns from [facility]. Referral faxed to [facility]. Patient's friend, Neno #[phone], can also be called with any dispo information should son not be available. PASRR complete and in chart. CM will follow. Date Signed: 11/23/2016 04:05 PM Electronically Signed By:Amna Phipps RN
[2016-11-23] MEDS: VENLAFAXINE XR 75 MG CAP PO SCH (19:05)
[2016-11-23] MEDS: FAMOTIDINE 20 MG TAB PO SCH (19:06)
[2016-11-24] MEDS: CEPHALEXIN 500 MG CAP PO SCH ×5 (00:50→23:52)
[2016-11-24 05:56] LABS: ANION GAP 14 mEq/L (8-16); CALCIUM 9.2 mg/dL (8.5-10.4); CARBON DIOXIDE 19 mEq/l (22-31); CHLORIDE 97 mEq/L (97-110); CREATININE 0.8 mg/dL (0.6-1.0); GLOMERULAR FILTRATION RATE > 60; GLUCOSE 91 mg/dL (70-100); POTASSIUM 3.7 mEq/L (3.5-5.2); SODIUM 130 mEq/L (134-144)
[2016-11-24 06:01] LABS: ABSOLUTE IMMATURE GRANULOCYTES 0.07 10^3/uL (0.00-0.10); ADD DIFF? NO; ADD MORPH? NO; ADD SCAN? NO; ATYPICAL LYMPHOCYTE FLAG 10 (0-99); FRAGMENT RBC FLAG 10 (0-99); HEMOGLOBIN 11.8 g/dL (12.6-16.3); LEFT SHIFT FLG 0 (0-99); LIPEMIA HEMOLYSIS FLAG 90 (0-99); MEAN CELL HEMOGLOBIN 31.1 pg (27.9-34.1); MEAN CELL HEMOGLOBIN CONCENTR. 34.7 g/dL (32.4-36.7); MEAN CELL VOLUME 89.5 fL (81.5-99.8); MEAN PLATELET VOLUME 8.6 fL (8.7-11.7); PLATELET CLUMPS FLAG 20 (0-99); PLATELET COUNT 243 10^3/uL (150-400); RED CELL DISTRIBUTION WIDTH 13.4 % (11.5-15.2)
[2016-11-24] MEDS: buPROPion XL 150 MG TAB PO SCH (09:11)
[2016-11-24] MEDS: guaiFENesin 600 MG TAB.ER PO SCH ×2 (09:11→20:09)
[2016-11-24] MEDS: ATENOLOL 50 MG TAB PO SCH (09:11)
[2016-11-24] MEDS: ENOXAPARIN 40 MG/0.4 ML SYR SC SCH (09:16)
--- NOTE | 2016-11-24 16:36 | HOSPPROG ---
Hospitalist Progress Note Assessment/Plan: 81 yo f w mech fall, small SAH. SAH: non focal exam without signs of elevated ICP neurosurgery feel she could be dc'd non focal exam repeat ct unchanged none further unless sx having some double vision since this occurred/trial of covering one eye/she doesn't feel this helped Dizziness: ongoing for several days/suspect it is from double vision cont monitoring mechanical falls she is reluctant but amenable she does have annona nasal fracture and maxillary sinus fracture: no nose blowing and abx ( Keflex) needs f/u with ENT proph: started lmwh AM 11/23 Plan: Monique is a [place] patient/ looking at placement at [facility] Subjective: Monique has no complaints/ wishes staff would let her nap. Objective: Vital Signs Temp Pulse Resp BP Pulse Ox 36.8 C 75 16 124/85 H 96 11/24/16 16:10 11/24/16 16:10 11/24/16 16:10 11/24/16 16:10 11/24/16 16:10 Laboratory Results 11/24/16 05:07 11/24/16 05:07 11/23/16 11/24/16 11/25/16 05:59 05:59 05:59 Intake Total 300 550 350 Output Total 400 401 300 Balance -100 149 50 PT 12.8 SEC (12.0-15.0) 11/20/16 17:00 INR 0.97 (0.83-1.16) 11/20/16 17:00 - Physical Exam Constitutional: no apparent distress, not in pain Eyes: PERRL Ears, Nose, Mouth, Throat: hearing normal Respiratory: no respiratory distress Skin: other (bruising to r jaw, right orbital area) Neurologic: AAOx3 Psychiatric: interacting appropriately ICD10 Worksheet Patient Problems: Problems Problem Status Onset Accidental fall Acute Fracture of maxillary sinus Acute Nasal bone fracture Acute Subarachnoid hemorrhage Acute
[2016-11-24] MEDS: FAMOTIDINE 20 MG TAB PO SCH (17:57)
--- NOTE | 2016-11-24 17:58 | ASMTCMCOM ---
CM Note CM Note Notes: Received a voicemial from [facility] late Wednesday evening, they are unable to get auth with [place] and will need [facility] to make call. Case Management will follow-up with [facility] on Wednesday for further instruction/information. Date Signed: 11/24/2016 05:57 PM Electronically Signed By:Amna Phipps RN
[2016-11-24] MEDS: VENLAFAXINE XR 75 MG CAP PO SCH (17:59)
[2016-11-24] MEDS: ACETAMINOPHEN 325 MG TAB PO PRN (23:55)
[2016-11-25] MEDS: CEPHALEXIN 500 MG CAP PO SCH ×2 (06:14→12:07)
[2016-11-25 08:03] VITALS: BP 107/73; PULSE 67; TEMP 97.5; O2SAT 91
[2016-11-25] MEDS: buPROPion XL 150 MG TAB PO SCH (08:27)
[2016-11-25] MEDS: guaiFENesin 600 MG TAB.ER PO SCH (08:27)
[2016-11-25] MEDS: ATENOLOL 50 MG TAB PO SCH (08:28)
[2016-11-25] MEDS: ENOXAPARIN 40 MG/0.4 ML SYR SC SCH (08:30)
--- NOTE | 2016-11-25 08:35 | HOSPPROG ---
Hospitalist Progress Note Assessment/Plan: 81 [facility]. SAH: non focal exam without signs of elevated ICP neurosurgery feel she could be dc'd non focal exam repeat ct unchanged none further unless sx was a bit confused this morning when she awoke, but better now if she has any further confusion, will get a CT of her head Dizziness: has no complaints/ also had some double vision two days ago mechanical falls she is reluctant but amenable she does have early nasal fracture and maxillary sinus fracture: no nose blowing and abx ( Keflex) needs f/u with ENT proph: started lmwh AM 11/23 Plan: Monique is a [place] patient/ looking at placement at [facility] Subjective: Monique has no complaints/ was wondering where her teeth were (has dentures). Objective: Vital Signs Temp Pulse Resp BP Pulse Ox 36.4 C 67 16 107/73 91 L 11/25/16 07:59 11/25/16 07:59 11/25/16 07:59 11/25/16 07:59 11/25/16 07:59 Laboratory Results 11/24/16 05:07 11/24/16 05:07 11/24/16 11/25/16 11/26/16 05:59 05:59 05:59 Intake Total 550 700 Output Total 401 300 Balance 149 400 PT 12.8 SEC (12.0-15.0) 11/20/16 17:00 INR 0.97 (0.83-1.16) 11/20/16 17:00 - Physical Exam Constitutional: no apparent distress, appears nourished, not in pain Eyes: PERRL Ears, Nose, Mouth, Throat: hearing normal Cardiovascular: regular rate and rhythym Respiratory: no respiratory distress Skin: warm, other (ecchymosis to right jaw area/ around right eye/ improving) Musculoskeletal: full muscle strength Neurologic: AAOx3 (but can be forgetful ) Psychiatric: interacting appropriately ICD10 Worksheet Patient Problems: Problems Problem Status Onset Accidental fall Acute Fracture of maxillary sinus Acute Nasal bone fracture Acute Subarachnoid hemorrhage Acute
[2016-11-25] MEDS ORDERED: CALCIUM CARBONATE 500 MG CHEWABLE TAB PO ONE ×2 (13:56→13:58)
[2016-11-25] MEDS ORDERED: CALCIUM CARBONATE 500 MG CHEWABLE TAB PO PRN (14:01)
--- NOTE | 2016-11-25 14:48 | PDIAF ---
- Diagnosis Diagnosis: small SAH, nasal and maxillary sinus fx Code Status: Do Not Resuscitate - Medication Management Discharge Medications: Medications to Continue on Transfer Atenolol [Tenormin 50 mg (*)] 50 mg PO DAILY 11/20/16 [Last Taken 11/20/16] Ranitidine HCl [Zantac] 300 mg PO DAILY@18 11/20/16 [Last Taken 11/19/16] Venlafaxine Xr [Effexor Xr 75MG (*)] 225 mg PO DAILY@18 11/20/16 [Last Taken 09/28] buPROPion XL [Wellbutrin 150mg XL] 300 mg PO DAILY 11/20/16 [Last Taken 11/20/16 ] metFORMIN HCL [Glucophage 500 mg (*)] 500 mg PO DAILY 11/20/16 [Last Taken 11/20] Acetaminophen [Tylenol 325mg (*)] 650 mg PO Q4HRS PRN tab 11/25/16 [Last Taken Unknown] Calcium Carbonate [Tums 500MG (*)] 500 mg PO TID PRN tab.chew 11/25/16 [Last Taken Unknown] Cephalexin [Keflex (*)] 500 mg PO Q6HRS #10 cap 11/25/16 [Last Taken Unknown] Wound Care Physician Antibiotics: take keflex x 2 more days, then stop Discharge Medications: Refer to the Discharge Home Medication list for PRN reason. - Orders Services needed: Physical Therapy, Occupational Therapy Diet Recommendation: no restrictions on diet Diet Texture: Regular Texture Diet Additional: FOLLOW UP W IN-NETWORK ENT MD OUTPATIENT R/T NASAL BONE FRACTURE. should be done in the next 2 weeks. No nose blowing. - Labs/Radiology BMP Date: 11/29/16 CBC Date: 11/29/16 - Follow Up Care
--- NOTE | 2016-11-25 15:16 | GDS ---
[f rep st] DISCHARGE SUMMARY DISCHARGE DIAGNOSES: 1. Small subarachnoid hemorrhage after falling. 2. Dizziness. 3. Mechanical falls. 4. Nasal fracture and maxillary sinus fracture. CONSULTATIONS: Sascha Ahuja MD. Denver Erickson MD. BRIEF HISTORY: Patient is an 81-year-old female, who was walking on her patio and fell. She describes the blocks on her patio are uneven, and she tripped over 1 of those. She is unsure if she lost consciousness after the fall. She came to the emergency room, and it was noted that she had a subarachnoid hemorrhage. Neurosurgery had been consulted. She was somewhat somnolent on exam. She had a noncontrast head CT which showed a small subarachnoid hemorrhage. A C-spine CT showed disk disease but nothing acute. She was seen and evaluated by Dr. Denver Erickson who did a repeat CT of her head. This was stable. Neurosurgery signed off and felt that it was fine for her to be started on Lovenox. HOSPITAL COURSE: 1. Small subarachnoid hemorrhage. She has had no focal symptoms except some dizziness and double vision which has resolved. She was a bit confused this morning but that completely resolved. Question if this is likely her baseline. If she has any neurologic changes that are significant, she will likely need further imaging. 2. Dizziness. No further complaints. 3. Mechanical falls. She has ambulated well down the hallways, just needs to be monitored for stability. 4. Nasal fracture and maxillary sinus fracture. She was treated with antibiotics. No nose blowing. She will need a followup appointment with ENT in the [facility]. CONDITION AT DISCHARGE: Stable. Blood pressure is 107/73, heart rate is 67, respiratory rate is 16, O2 sats on room air 91%, temperature is 36.4 Celsius. MEDICATIONS AT DISCHARGE: Please see the EMR. DISCHARGE INSTRUCTIONS: 1. To get evaluation by ENT. 2. No nose blowing. 3. If she develops any neurologic changes, she will need a repeat CT scan. Greater than 30 minutes discharging and coordinating patient's care. /[id number]/MODL MTDD
--- NOTE | 2016-11-25 16:48 | ASMTCMCOM ---
CM Note CM Note Notes: Pt medically stable for d/c to [facility]. This am this CM spoke with Evelia at [facility] [phone] who refused to authorize [facility] since [facility] and [facility] have [facility] beds. Pt and son updated. Pt friend Neno was updated. Orders sent to [facility] via [employer]. ALYSSA Mora to call report. [facility] van set up for 1700, auth is [id number]. Date Signed: 11/25/2016 04:48 PM Electronically Signed By:ALEX Perkins
--- NOTE | 2016-11-26 11:21 | ASDISCHSUM ---
Discharge Information Plan Status:SNF Medically Cleared to Leave: Discharge Date:11/25/2016 05:00 PM D/C [facility] Disposition:Other Rehab, Not [facility] Projected Discharge Date:11/25/2016 11:00 AM Transportation at D/C: Discharge Delay Reason: Follow-Up Date:11/25/2016 11:00 AM Discharge Slot: Final Diagnosis:Fall-SDH, Nasal fxs Placement Information Referral Type:*Intermediate/SNF Referral ID:[id number] Provider Name:Ivette Obrien Address [address] [facility] Phone Number: Address 2: Fax Number: City:[place] Selection Factors: State:[place] Patient Contact Information Contact Name:ZAKIYA Relationship:Waldo Address: Work Phone: City: [facility] Phone: [facility] Code: Email: Financial Information Financial Class:Medicare Advantage Plans Primary Plan Desc:[employer] ADV IP Primary Plan Number:[id number] Secondary Plan Desc: Secondary Plan Number: Assessment Information [facility] CM Progress Note CM Note CM Note Notes: Patient admitted after having a witnessed mechanical fall on her patio. She has recently moved from [place] from [place]. Son is local. She has a small subarachnoid hemorrhage and some facial fractures. Per surgery and neurosurgery, if CT scan is negative patient can be managed non-operatively. OT recommending inpatient rehab, PT eval pending. Rehab consult pending, as well. Surgery note seems to suggest discharge home. At this point, discharge TBD and CM will follow for discharge planning. Date Signed: 11/21/2016 02:29 PM Electronically Signed By:Leandra Mallory RN [facility] CM Progress Note CM Note CM Note Notes: 81 year old female recently moved to [place] from [place] to be closer to her son, Primo. Admitted for a fall: SDH and nasal fxs. Therapies to eval for discharge needs. Case Management to follow. Date Signed: 11/22/2016 09:34 AM Electronically Signed By:Marleny Kamara LCSW [facility] CM Progress Note CM Note CM Note Notes: Therapies are recomending Acute Rehab and patient is willing to go. Need to wait for Wednesday for In-pt to eval and get auth. Patient has Medicare insurance. Date Signed: 11/22/2016 03:28 PM Electronically Signed By:Marleny Kamara LCSW [facility] CM Progress Note CM Note CM Note Notes: Received a call from Monique at [facility] Inpt. Rehab. Monique to contact [facility] today and send for auth. Monique will follow-up with Case Managment later today. CM w/f. Date Signed: 11/23/2016 11:25 AM Electronically Signed By:Amna Phipps RN [facility] CM Progress Note CM Note CM Note Notes: Received a call from Monique at [facility] Inpt. Rehab, [facility] has denied IPR, recommending SNF. Met with patient and spoke to patient's son, Primo, via phone regaring discharge poc. Patient's son is in [place] until . Informed patient that IPR is not a possibility and that SNF is being recommended, patient agreeable, although, hesitant. Son in complete agreement with SNF placement and does not feel comfortable with patient discharging home until he returns from [facility]. Referral faxed to [facility]. Patient's friend, Neno #[phone], can also be called with any dispo information should son not be available. PAS[facility] complete and in chart. CM will follow. Date Signed: 11/23/2016 04:05 PM Electronically Signed By:Amna Phipps RN [facility] CM Progress Note CM Note CM Note Notes: [facility], they are unable to get auth with [facility] and will need [facility] to make call. Case Management will follow-up with [facility] on Wednesday for further instruction/information. Date Signed: 11/24/2016 05:57 PM Electronically Signed By:Amna Phipps RN [facility] CM Progress Note CM Note CM Note Notes: Pt medically stable for d/c to [facility]. This am this CM spoke with Evelia at [facility] [phone] who refused to authorize [facility] since [facility] and [facility] beds. Pt and son updated. Pt friend Neno was updated. Orders sent to [facility] via [facility]. ALYSSA Mora to call report. [facility] van set up for 1700, auth is [id number]. Date Signed: 11/25/2016 04:48 PM Electronically Signed By:ALEX Perkins Intervention Information Intervention Type:*IM-Signed Date of Service:11/25/2016 12:55 PM Patient Type:Inpatient Staff Member:Lida Koehler Hours: Discipline: Severity: Comment:
== END 2016-11-25 17:00 | DRG 87 ==
LOC: F2N 19:27 → F3N 11-22 15:47
PROVIDERS: ADMIT Student in an Organized Health Care Education/Training Program; ATTEND Student in an Organized Health Care Education/Training Program
DX: S06.6X0A Traumatic subarachnoid hemorrhage without loss of consciousness, initial encounter (principal); S02.2XXA Fracture of nasal bones, initial encounter for closed fracture; S02.401A Maxillary fracture, unspecified side, initial encounter for closed fracture; W01.0XXA Fall on same level from slipping, tripping and stumbling without subsequent striking against object, initial encounter; Y92.480 Sidewalk as the place of occurrence of the external cause; Y92.017 Garden or yard in single-family (private) house as the place of occurrence of the external cause; Z96.643 Presence of artificial hip joint, bilateral; E11.9 Type 2 diabetes mellitus without complications; K21.9 Gastro-esophageal reflux disease without esophagitis; F32.9 Major depressive disorder, single episode, unspecified
CPT/HCPCS: 92507-GN; 92523-GN; 97116-GP; 97161-GP; 97166-GO; 97532-GO; 97535-GO; G8978-GP-CK; G8979-GP-CI; G8987-GO-CJ; G8988-GO-CI; G9168-GO-CI; G9169-GN-CI; J1650; J2405